=== PATIENT | female | born 1940 | race Caucasian/White ===

== ENCOUNTER 2017-04-06 12:13 | Outpatient (CLI) | payer MEDICARE, OTHER ==
--- NOTE | 2017-04-06 14:51 | Ultrasound Report ---
CAROTID DUPLEX: 04/06/2017 CLINICAL INDICATION: Vertigo. COMPARISON: 07/20/2010. TECHNIQUE: Real-time sonographic vascular imaging was performed by the community marketing manager through the carotid arteries utilizing both color-flow and Doppler spectral analysis. Multiple school admissions representative static images were saved for review. Vessel PSV cm/sec 2D Plaque Estimate % EDV cm/sec ICA/CCA PSV % Stenosis RCCA Prox 95 -- RCCA Dist 70 15 RECA 166 -- RT BULB 66 -- 10 0.9 GABRIELA Prox 83 -- 20 1.2 GABRIELA Mid 77 -- 19 1.1 GABRIELA Dist 79 -- 18 1.1 RVA 36 RVA flow direction: Antegrade. Vessel PSV cm/sec 2D Plaque Estimate % EDV cm/sec ICA/CCA PSV % Stenosis LCCA Prox 111 -- LCCA Dist 73 16 LECA 65 -- LFT BULB 59 -- 14 0.8 LICA Prox 54 -- 12 0.7 LICA Mid 70 -- 24 1.0 LICA Dist 73 -- 23 1.0 LVA 38 LVA flow direction: Antegrade. Velocity criteria are extrapolated from diameter data as defined by the Society of Radiologists in Ultrasound Consensus Conference Radiology 2003; 229; 340-346. Degree of Stenosis % ICA PSV cm/sec Plaque Estimate % ICA/CCA RSV Ratio ICA EDV cm/sec Normal < 125 None < 2.0 < 40 <50 < 125 < 50 < 2.0 < 40 50-69 125 - 130 >/= 50 2.0 - 4.0 40 - 100 >/= 70 but less than near occlusion > 230 >/= 50 > 4.0 > 100 Near occlusion High, low, or undetectable Visible lumen Variable Variable Total occlusion Undetectable No detectable lumen Not applicable Not applicable FINDINGS: RIGHT: There is mild plaquing in the right carotid bifurcation, without evidence of a focal hemodynamically significant carotid stenosis. LEFT: There is mild plaquing in the left carotid bifurcation, without evidence of a focal hemodynamically significant carotid stenosis. The vertebral arteries demonstrate antegrade flow bilaterally. IMPRESSION: MILD PLAQUING BILATERALLY, WITHOUT SIGNIFICANT CAROTID STENOSIS. MTDD
== END 2017-04-06 12:14 | disposition home or self-care (01) ==
LOC: DI 12:13
PROVIDERS: ATTEND Nurse Practitioner Family
DX: R42 Dizziness and giddiness (principal)
CPT/HCPCS: 93880

== ENCOUNTER 2018-07-28 08:22 | Outpatient (CLI) | payer MEDICARE, OTHER ==
--- NOTE | 2018-07-31 09:38 | DEXA Report ---
Reason: ENCOUNTER FOR SCREENING OSTEOPOROSIS,OTHER FORMS Procedure Date: 07/28/2018 Accession Number: [id number] / [id number] Procedure: DEX - Dexa Spine and/or Hip CPT Code: FULL RESULT: EXAM: Dexa Spine and/or Hip DATE: 07/28/2018 8:54 AM CLINICAL HISTORY: ENCOUNTER FOR SCREENING OSTEOPOROSIS,OTHER FORMS TECHNIQUE: Dual energy x-ray absorptiometry (DXA) was performed on a Nightingale System. Regions measured are the AP Spine, femoral neck, and if needed forearm. COMPARISON: None. In accordance with the International Society for Clinical Densitometry (ISCD) guidelines, data from previous exams may be reanalyzed using current recommendations and techniques. This is done to allow a more accurate basis for comparison with the current study. FINDINGS: The data for the lumbar spine is as follows: BMD (g/cm/cm) T-SCORE Z-SCORE REGION L1 1.291 1.3 3.2 L2 1.293 0.8 2.6 L3 1.479 2.3 4.2 L4 1.469 2.2 4.1 TOTAL 1.398 1.8 3.7 NOTE: All evaluable vertebrae are used for classification The data for the hip is as follows: BMD (g/cm/cm) T-SCORE Z-SCORE REGION Neck 1.041 0.0 2.2 TOTAL 1.062 0.4 2.4 NOTE: The femoral neck or total proximal femur, whichever is lowest, is used for classification. IMPRESSION: THE WHO CLASSIFICATION BASED ON THE INTERNATIONAL REFERENCE STANDARD IS NORMAL. THE FRACTURE RISK IS NOT INCREASED. RECOMMENDATION: Patients with diagnosis of osteoporosis or osteopenia should have regular bone mineral density assessment. For those eligible for Medicare, routine testing is allowed once every 2 years. Testing frequency can be increased for patients who have rapidly progressing disease or for those who are receiving medical therapy to restore bone mass. COMMENT: World Health Organization (WHO) definitions for osteoporosis and osteopenia: NORMAL BMD: T-score at -1.0 or higher, fracture risk is low OSTEOPENIA BMD: T-score between -1.0 and -2.5, fracture risk is increased. OSTEOPOROSIS BMD: T-score at -2.5 or lower, fracture risk is high. National Osteoporosis Foundation recommends: 1. Obtain adequate dietary calcium (at least 1200 mg per day) and vitamin D (400-800 international units per day). 2. Participate, as appropriate, in regular weightbearing and muscle-strengthening exercise. 3. Avoid tobacco use and reduce alcohol and caffeine intake. 4. For more detailed information see the website at www.NOF.org.
== END 2018-07-28 08:23 | disposition home or self-care (01) ==
LOC: DI 08:22
PROVIDERS: ATTEND Physician Assistant
DX: Z13.820 Encounter for screening for osteoporosis (principal); Z78.0 Asymptomatic menopausal state; M17.9 Osteoarthritis of knee, unspecified
CPT/HCPCS: 77080

== ENCOUNTER 2018-07-28 08:26 | Outpatient (CLI) | payer MEDICARE, OTHER ==
--- NOTE | 2018-07-31 09:22 | Mammography Report ---
Reason: ENCOUNTER FOR SCREENING MAMMOGRAM FOR MALIGNANT NE Procedure Date: 07/28/2018 Accession Number: [id number] / [id number] Procedure: DERIC - Screening Mammo w/Melvin CPT Code: FULL RESULT: EXAM: Screening Mammo w/Melvin DATE: 07/28/2018 9:06 AM CLINICAL HISTORY: Screening encounter. Family history of breast cancer in the mother around the age of 50. TECHNIQUE: Bilateral CC and MLO views were obtained. COMPARISON: 09/04/2013 through 08/19/2009. FINDINGS: The breasts demonstrate heterogeneously dense fibroglandular parenchyma bilaterally. There are coarse typically benign left breast skin calcifications. No suspicious masses, clustered microcalcifications, or regions of architectural distortion are identified. IMPRESSION: Benign findings RECOMMENDATION: Routine annual screening unless otherwise clinically indicated. BIRADS CATEGORY 2: Benign findings STANDARD QUALIFYING STATEMENTS: 1. This examination was not reviewed with the aid of Computer-Aided Detection (CAD). 2. A negative or benign imaging report should not preclude biopsy if clinically suspicious findings are present. 3. Dense breasts may obscure an underlying neoplasm. 4. This examination was reviewed with the aid of 3D breast imaging (tomosynthesis).
== END 2018-07-28 08:27 | disposition home or self-care (01) ==
LOC: DI 08:26
PROVIDERS: ATTEND Physician Assistant
DX: Z12.31 Encounter for screening mammogram for malignant neoplasm of breast (principal); Z80.3 Family history of malignant neoplasm of breast
CPT/HCPCS: 77063; 77067

== ENCOUNTER 2019-06-27 11:42 | Outpatient (CLI) | payer MEDICARE, OTHER | END 2019-06-27 11:43 | disposition home or self-care (01) | LOC: DI 11:42 | PROVIDERS: ATTEND Internal Medicine Cardiovascular Disease | DX: R06.09 Other forms of dyspnea (principal) | CPT/HCPCS: 93306 ==

== ENCOUNTER 2021-01-27 21:09 | Outpatient (CLI) | payer MEDICARE, OTHER | END 2021-01-27 21:10 | disposition critical access hospital (66) | LOC: EMS 21:09 | DX: R61 Generalized hyperhidrosis (principal); R41.82 Altered mental status, unspecified | CPT/HCPCS: A0425; A0429 ==

== ENCOUNTER 2021-01-27 21:39 | Emergency (ER) | payer MEDICARE, OTHER ==
[2021-01-27] MEDS ORDERED: LORazepam 2 MG/ML VIAL ONE (21:49)
--- NOTE | 2021-01-27 21:54 | ED Physician Documentation ---
History of Present Illness - Stated complaint Stated Complaint: ALLERGIC REACTION - Chief complaint Chief Complaint: Allergic Rx - History obtained from History obtained from: Patient - History of Present Illness Timing: Prior to arrival Pain level now: 0 Improved by: IV fluids, benadryl, and IM epinephrine - Additonal information Additional information: BIBA. patient had sudden stinging pain right axilla, she suspects she was stung by a bee based on the sensation although did not see a bee. She rapidly deve loped body-wide pruritic rash and lightheadedness. She was outside when this happened, and upon going back into the house she had a syncopal episode lasting a few seconds. Friend called 911. EMS arrives to find SBP in the 70s. She is given 50mg IV benadryl, 0.3mg IM epinephrine, and 800ml NS. Her blood pressure is improved with these measures. She arrives tremulous and anxious. She has not had these symptoms before. She thinks she has either never been stung by a bee before or possibly once but without allergic reaction Review of Systems Cardiac: reports: Reviewed and negative Respiratory: reports: Reviewed and negative GI: reports: Reviewed and negative : denies: Incontinent Skin: reports: Rash Neurologic: reports: Generalized weakness. denies: Headache PD PAST MEDICAL HISTORY - Past Medical History Cardiovascular: Hypertension - Present Medications Home Medications: Ambulatory Orders Medication Instructions Recorded Confirmed Metoprolol Tartrate [Lopressor] 25 mg PO DAILY 01/27/21 01/27/21 EPINEPHrine [Epinephrine] 0.3 mg IJ ONCE PRN #3 01/28/21 predniSONE [Deltasone] 40 mg PO DAILY 4 Days #8 tablet 01/28/21 - Allergies Allergies/Adverse Reactions: Allergies Allergy/AdvReac Type Severity Reaction Status Date / Time codeine Allergy Unknown Unknown Verified 01/27/21 21:48 PD ED PE NORMAL - Vitals Vital signs reviewed: Yes - General General: Alert and oriented X 3, Well developed/nourished, Other (generalized tremulousness, anxious) - HEENT HEENT: Moist mucous membranes - Neck Neck: Supple, no meningeal sign - Cardiac Cardiac: RRR, No murmur - Respiratory Respiratory: No respiratory distress, Clear bilaterally - Abdomen Abdomen: Soft, Non tender - Extremities Extremities: No edema - Neuro Neuro: Alert and oriented X 3 PD ED PE EXPANDED - Derm Derm: Urticaria (diffuse/body-wide) Results - Vitals Vitals: Oxygen O2 Source Room air - EKG (time done) No standard instances Rate: Rate (enter#) (77) Rhythm: Sinus tachycardia [place]: Normal Intervals: Normal VA QRS: Normal Ischemia: Normal ST segments, Q waves (V1, V2) PD MEDICAL DECISION MAKING - ED course Complexity details: reviewed results, re-evaluated patient, considered differential, d/w patient ED course: patient arrives with anaphylaxis after stinging sensation to right axilla, possibly bee sting but no insect was noted. Hypotensive in field but after IV fluids, benadryl, and IM epinephrine she is normotensive and remains normotensive during ED stay. She arrives very anxious and with marked generalized tremulousness; this improved significantly with IV ativan. her diffuse urticaria waxed and waned during ED stay with associated pruritis. she is given 25mg IV benadryl with expected drowsiness. Also given 125mg IV solu- medrol shortly after ED arrival. after 4 hours of observation in ED, she is stable and appropriate for d/c. Departure - Departure Disposition: 01 Home, Self Care Clinical Impression: Anaphylaxis Qualifiers: Encounter type: initial encounter Qualified Code(s): T78.2XXA - Anaphylactic shock, unspecified, initial encounter Condition: Good Instructions: ED Bite Sting Insect Gen Allergic React Prescriptions: predniSONE [Deltasone] 40 mg PO DAILY 4 Days #8 tablet EPINEPHrine [Epinephrine] 0.3 mg IJ ONCE PRN #3 PRN Reason: Anaphylaxis Discharge Date/Time: 01/28/21 02:13
[2021-01-27] MEDS ORDERED: methylPREDNISolone SUCCINATE 125 MG/2 ML VIAL IVP STA (21:55)
[2021-01-27] MEDS ORDERED: LORazepam 2 MG/ML VIAL IVP STA ×2 (21:55)
[2021-01-27] MEDS ORDERED: diphenhydrAMINE INJ 50 MG/ML VIAL IVP STA (23:42)
[2021-01-28 02:13] VITALS: BP 110/81
== END 2021-01-28 02:13 | disposition home or self-care (01) ==
LOC: EDUNIT# → ED 21:39
DX: T63.91XA Toxic effect of contact with unspecified venomous animal, accidental (unintentional), initial encounter (principal); T78.2XXA Anaphylactic shock, unspecified, initial encounter; L50.9 Urticaria, unspecified; X58.XXXA Exposure to other specified factors, initial encounter; R55 Syncope and collapse; R00.0 Tachycardia, unspecified; F41.9 Anxiety disorder, unspecified; I10 Essential (primary) hypertension
CPT/HCPCS: 93005; 96374; 96375; 99283; 99284; J1200; J2060

== ENCOUNTER 2021-10-26 15:54 | Outpatient (CLI) | payer MEDICARE, OTHER ==
--- NOTE | 2021-10-27 11:16 | Ultrasound Report ---
PROCEDURE: Carotid Doppler Complete INDICATIONS: LIGHTHEADNESS TECHNIQUE: Color and pulse Doppler interrogation was performed of both carotid systems, with image documentation and velocity measurements. COMPARISON: 04/06/2017. FINDINGS: Right side: Brachial blood pressure: 158/60 mm Hg. Common carotid artery peak systolic velocity: 92 cm/sec. Internal carotid artery peak systolic velocity: 91 cm/sec. Internal carotid artery end diastolic velocity: 26th cm/sec. External carotid artery peak systolic velocity: 191 cm/sec. ICA/CCA peak systolic ratio: 1.0 . Udarte scale imaging description: Calcified plaque Percent internal carotid artery stenosis: Less than 50% . Vertebral artery: Flow direction is antegrade. Left side: Brachial blood pressure: 146/63 mm Hg. Common carotid artery peak systolic velocity: 75 cm/sec. Internal carotid artery peak systolic velocity: 90 cm/sec. Internal carotid artery end diastolic velocity: 28 cm/sec. External carotid artery peak systolic velocity: 67 cm/sec. ICA/CCA peak systolic ratio: 1.2 . Duarte scale imaging description: Calcified plaque Percent internal carotid artery stenosis: Less than 50% . Vertebral artery: Flow direction is antegrade. IMPRESSION: Less than 50% stenosis of the origins of the internal carotid arteries bilaterally. Hypertension at the time of imaging. The estimate of stenosis included in the report of the imaging study was calculated using the NASCET method Reviewed by: Elicia Leonardo MD, PhD on 10/27/2021 11:15 AM PDT Approved by: Elicia Leonardo MD, PhD on 10/27/2021 11:15 AM PDT Station ID: [id number]
== END 2021-10-26 15:55 | disposition home or self-care (01) ==
LOC: DI 15:54
PROVIDERS: ATTEND Nurse Practitioner Family
DX: I65.23 Occlusion and stenosis of bilateral carotid arteries (principal)
CPT/HCPCS: 93880

== ENCOUNTER 2022-08-07 10:30 | Outpatient (CLI) | payer MEDICARE, OTHER | END 2022-08-07 10:31 | disposition short-term general hospital (02) | LOC: EMS 10:30 | DX: I49.3 Ventricular premature depolarization (principal); R00.8 Other abnormalities of heart beat | CPT/HCPCS: A0425; A0429 ==

== ENCOUNTER 2024-03-27 11:02 | Outpatient (CLI) | payer MEDICARE, OTHER ==
--- NOTE | 2024-03-27 11:49 | XRAY Report ---
PROCEDURE: Cervical Spine 2-3V INDICATIONS: PARESTHESIA OF HAND TECHNIQUE: 3 view(s) of the cervical spine were acquired. COMPARISON: None. FINDINGS: Bones: No fractures or dislocations to the T1-T2 level. The lateral masses of C1 appear intact on t he odontoid view. No suspicious bony lesions. There is moderate degenerative disc disease present C5-6, C6-7, and C7-T1. Soft tissues: No prevertebral soft tissue swelling. IMPRESSION: 1. No evidence for acute osseous abnormality involving the cervical spine. 2. Moderate degenerative disc disease present C5-C6, C6-C7, and C7-T1. 3. If further evaluation for radicular symptoms is of clinical concern MRI cervical spine may be of f urther clinical value. Reviewed by: Teo Lin MD on 03/27/2024 11:48 AM PDT Approved by: Teo Lin MD on 03/27/2024 11:48 AM PDT Station ID: [id number]
== END 2024-03-27 11:03 | disposition home or self-care (01) ==
LOC: DI.S 11:02
PROVIDERS: ATTEND Nurse Practitioner Family
DX: R20.2 Paresthesia of skin (principal); M50.322 Other cervical disc degeneration at C5-C6 level; M50.33 Other cervical disc degeneration, cervicothoracic region

== ENCOUNTER 2024-04-12 16:00 | Outpatient (CLI) | payer MEDICARE, OTHER ==
--- NOTE | 2024-04-15 21:59 | MRI Report ---
PROCEDURE: Cervical Spine WO INDICATIONS: PARESTHESIA OF SKIN TECHNIQUE: Noncontrast sagittal T1 spin echo and T2 fast spin echo, sagittal STIR, foraminal oblique sagittal T2 fast spin echo, and axial gradient echo or T2 fast spin echo through the cervical spine. COMPARISON: X-ray cervical spine 03/28/2024 FINDINGS: Image quality: Excellent. Alignment and Curvature: There is trace retrolisthesis of C5 on C6, C6 on C7. Bone Marrow: Marrow demonstrates normal overall signal. Spinal Cord: Visualized spinal cord has normal size and signal. No cerebellar tonsillar herniation. Paraspinous Soft Tissues: No paravertebral masses. Prevertebral soft tissues are normal in thicknes s. Discs: Multilevel moderate disc desiccation most severe at C5-6 and C6-7. C2-C3: No disc bulge, spinal stenosis or foraminal narrowing. C3-C4: Mild disc bulge without spinal stenosis. Moderate left foraminal narrowing with uncovertebra l hypertrophy. C4-C5: Mild disc bulge without spinal stenosis. No foraminal narrowing. Uncovertebral hypertrophy is present. C5-C6: Mild disc bulge without spinal stenosis. Mild left and minimal to mild right foraminal narrow ing with uncovertebral hypertrophy. C6-C7: Mild disc bulge without spinal stenosis. Moderate bilateral foraminal narrowing with uncovert ebral hypertrophy. C7-T1: No disc bulge or spinal stenosis. Mild bilateral foraminal narrowing. IMPRESSION: Multiple disc bulges. Multilevel foraminal narrowing most severe at C3-4 and C6-7 secondary to uncovertebral arthropathy. Reviewed by: Haley Carrera MD on 04/15/2024 9:57 PM PDT Approved by: Haley Carrera MD on 04/15/2024 9:57 PM PDT Station ID: [id number]
== END 2024-04-12 16:01 | disposition home or self-care (01) ==
LOC: DI 16:00
PROVIDERS: ATTEND Nurse Practitioner Family
DX: M50.31 Other cervical disc degeneration, high cervical region (principal); M48.02 Spinal stenosis, cervical region; M47.812 Spondylosis without myelopathy or radiculopathy, cervical region